=== PATIENT | female | born 1965 ===

== ENCOUNTER 2016-04-18 13:56 | Emergency (ER) | payer MEDICAID ==
[2016-04-18 14:13] VITALS: RESP 18; TEMP 98.5
--- NOTE | 2016-04-18 14:15 | C.PDOC ---
History Of Present Illness 51-year-old female, Hx obtained via [employer] [employer], presents to the emergency department with complaints of generalized weakness, vague dizziness since yesterday. Patient states "I think my blood level is low again." Patient has a Hx of Menorrhagia, current menses 2.5 weeks. Patient is on iron supplements but no prior use of BCP. Patient states she was previously advised may need a "scraping" but never followed through. No pain or vomiting. VIA TRANS GEN WEAKNESS, VAGUE DIZZY SINCE YEST "I THINK MY BLOOD LEVEL IS LOW AGAIN". HO MENORRHAGIA, CURRENT MENSES 2.5 WKS. ON IRON SUPPLEMENTS BUT NO PRIOR USE OF BCP. PS WAS PREV ADVISED MAY NEED "A SCRAPING" BUT NEVER FOLLOWED THROUGH. NO PAIN, V EXAM NONTOXIC HEENT MILD PALLOR ABD NEG GOOD TURGOR Time Seen by Provider: 04/18/16 14:14 Chief Complaint (Nursing): Syncope History Per: Patient History/Exam Limitations: no limitations Past Medical History Reviewed: Historical Data, Nursing Documentation, Vital Signs Vital Signs: Last Vital Signs Temp 98.5 F 04/18/16 14:04 Pulse 95 H 04/18/16 14:04 Resp 18 04/18/16 14:04 BP 128/72 04/18/16 14:04 Pulse Ox 99 04/18/16 14:59 - Medical History PMH: Anemia, HTN Family History: States: Unknown Family Hx - Social History Hx Alcohol Use: No Hx Substance Use: No - Immunization History Hx Tetanus Toxoid Vaccination: No Hx Influenza Vaccination: Yes (2016) Hx Pneumococcal Vaccination: No Review Of Systems Except As Marked, All Systems Reviewed And Found Negative. Constitutional: Negative for: Fever, Chills Cardiovascular: Negative for: Chest Pain Respiratory: Negative for: Cough, Shortness of Breath Gastrointestinal: Negative for: Nausea, Vomiting Physical Exam - Physical Exam Appears: Non-toxic, No Acute Distress Skin: Warm, Dry, No Rash Head: Atraumatic, Normacephalic Eye(s): bilateral: Normal Inspection, PERRL Nose: Normal Oral Mucosa: Moist Lips: Normal Appearing Neck: Normal ROM Cardiovascular: Rhythm Regular Respiratory: Normal Breath Sounds, No Accessory Muscle Use Extremity: Normal ROM Neurological/Psych: Oriented x3, Normal Speech ED Course And Treatment - Laboratory Results Result Diagrams: 04/18/16 14:34 ECG: Interpreted By Me ECG Rhythm: Sinus Rhythm ECG Interpretation: Normal Rate From EC O2 Sat by Pulse Oximetry: 99 Pulse Ox Interpretation: Normal Progress - Re-Evaluation Re-evaluation Note: 04/18/16 14:45 d/w DR NOWAK: ADVISES PROVERA 5 MG BID X 2 WEEKS, OUTPT HOLT W OBGYN. PRBC X 1 PRN RISKS BENEFITS BLOOD TRANSFUSION D/W PT, FAMILY @ BEDSIDE VIA LORRAINE SPEAR. PT EXPRESSES VERBAL UNDERSTANDING OF RISKS BENEFITS AND DOES NOT WISH TRANSFUSION @ THIS TIME. DC W RX, FU OBGYN - Data Reviewed Data Reviewed: Old records - Continuity of Care Discussed pt. case with strategy consultant/specialty: Obstetrics/Gynecology Disposition Counseled Patient/Family Regarding: Studies Performed, Diagnosis, Need For Followup, Rx Given - Disposition Referrals: [facility] [Outside] [facility] [Outside] [facility] [Outside] Disposition: HOME/ ROUTINE Disposition Time: 15:30 Condition: IMPROVED Prescriptions: MedroxyPROGESTERone [Provera] 5 mg PO BID #28 tab Instructions: Menorrhagia (ED) Forms: Work Excuse Print Language: WELSH - Clinical Impression Clinical Impression: Dizziness, Menorrhagia, Anemia - Scribe Statement The provider has reviewed the documentation as recorded by the Liyahibamy Cobb All medical record entries made by the Scribe were at my direction and personally dictated by me. I have reviewed the chart and agree that the record accurately reflects my personal performance of the history, physical exam, medical decision making, and the department course for this patient. I have also personally directed, reviewed, and agree with the discharge instructions and disposition.
[2016-04-18] MEDS ORDERED: Sodium Chloride 0.9% 1,000 ML IV ONE (14:25)
[2016-04-18 14:39] LABS: HEMATOCRIT 24.5 % (34.0-47.0); MEAN CORPUSCULAR HEMOGLOBIN 23.2 pg (27.0-31.0); MEAN CORPUSCULAR HGB CONC 30.9 g/dL (33.0-37.0); MEAN PLATELET VOLUME 8.4 fL (7.2-11.7); RED CELL DISTRIBUTION WIDTH 17.7 % (11.5-14.5); WHITE BLOOD COUNT 4.9 K/uL (4.8-10.8)
[2016-04-18 15:19] VITALS: BP 128/69; PULSE 88; O2SAT 100
--- NOTE | 2016-04-25 20:02 | CARD ---
APPROVED REPORT EKG Measurement Heart [id number] <Conclusion> Normal sinus rhythm Normal ECG
== END 2016-04-18 15:19 | disposition home or self-care (01) ==
LOC: C.ER 13:56
DX: R42 Dizziness and giddiness (principal); D64.9 Anemia, unspecified; N92.0 Excessive and frequent menstruation with regular cycle
CPT/HCPCS: 85027; 93005; 96360; 99285; J7040